=== PATIENT | female | born 1975 | race Two or more races ===

== ENCOUNTER 2021-05-31 22:47 | Emergency (ER) | payer OTHER ==
[~2021-05-31] VITALS: Ht 165.1 cm; Wt 68.0 kg
[2021-05-31] MEDS ORDERED: AZITHROMYCIN250 MG (23:26)
[2021-05-31] MEDS ORDERED: ZYNCOF 400-201 EACH (23:26)
[2021-05-31] MEDS ORDERED: PREDNISOLO15 MG/5 M1 (23:27)
[2021-06-01] MEDS ORDERED: TESSALON PERLE100 M1 PO (19:42)
[2021-06-01] MEDS ORDERED: TUSSI PRES-B L480 ML PO (19:42)
[2021-06-01] MEDS ORDERED: MEDROLPACK PO (19:42)
[2021-06-01] MEDS ORDERED: XOPENEX0.63 MG/3 IH (19:42)
[2021-06-01] MEDS ORDERED: BUDESONIDE0.5 MG/2 M IH (19:42)
[2021-06-01] MEDS ORDERED: MONODOX100 MG PO (19:42)
== END 2021-06-01 20:03 | disposition home or self-care (01) ==
LOC: ER 22:47
DX: A49.3 Mycoplasma infection, unspecified site (principal); Z03.818 Encounter for observation for suspected exposure to other biological agents ruled out